=== PATIENT | male | born 1970 | race Caucasian/White ===

== ENCOUNTER 2019-08-07 06:18 | Day surgery (SDC) | payer OTHER, SELFPAY ==
[2019-08-07] VITALS (8 sets, daily range): BP systolic 81–161; BP diastolic 44–99; PULSE 57–74; RESP 12–19; TEMP 36.2–36.7; O2SAT 93–98
[2019-08-07] MEDS: Lactated Ringers 1,000 ML 80 ML IV ×2 (06:55→09:35)
--- NOTE | 2019-08-07 07:41 | W.PM.DSUDISC ---
Discharge Plan Disposition Patient Disposition: [facility] Condition: Good Discharge Details Reason For Visit: NASAL SEPTUM DEVIATION Attending Provider: Dimitri Santana Home Meds and New Rx's Prescriptions: No Action buprenorphine-naloxone [Suboxone] 8-2 mg Film 1 film BUCCAL PRN PRNRF: 0 Discharge Instructions Additional Instructions: see sheet Equipment/Supplies: Brace Remove Dressings/Wound Care:: 24 hours Shower/Bathe:: 24 hours Diet:: As Tolerated DS: Diagnosis Discharge Diagnosis (1) Nasal septal deviation: Status: Acute (2) Nasal obstruction: Status: Acute (3) Nasal valve collapse: (4) Hypertrophy of posterior end of inferior turbinate: Status: Acute
[2019-08-07] MEDS: Oxymetazolone 0.05% SPRAY 15 ML BTL (08:16)
[2019-08-07] MEDS: Silver Nitrate Stick 1 EACH (09:14)
--- NOTE | 2019-08-07 10:32 | ROE_ITS ---
DATE OF PROCEDURE: August 07, 2019 PREOPERATIVE DIAGNOSIS: 1. Chronic nasal obstruction. 2. Obstruction of nasal valve bilaterally. 3. Nasal stenosis. 4. Hypertrophia of both inferior turbinates. POSTOPERATIVE DIAGNOSIS: Same. PROCEDURE: 1. Functional nasoseptal reconstruction, inferior turbinate submucosal resection bilaterally. 2. Repair of internal nasal valve collapse with homograft bilaterally. SURGEON: Dimitri Santana D.O. ANESTHESIA: General. ESTIMATED BLOOD LOSS: 5 cc's TOTAL LOCAL USED: 13 cc's of 1% Lidocaine with 1:100,000 epinephrine COMPLICATIONS: None. CONDITION: The patient tolerated the procedure well. INDICATIONS FOR PROCEDURE: We had an in-depth in office discussion as well as same-day preoperative discussion indicating that the patient is not going to be having a functional rhinoplasty. He has co ncerns about a left nasal bone injury he reports in the kitchen at the [facility] where he struck a metal rounded knob. We went through this numerous times, both in the office and the day of surgery, offer ing referral to [facility] if he so chooses to have the outside and inside of his nose fixed. However I have only discussed with him repair surgically of the internal function al aspect for breathing. We reviewed this in detail again the morning of the surgery with guards pre sent, as well as nursing, his options were reviewed. He wishes to proceed. Again he understands adama t the outside appearance of his nose will not be altered with this functional surgery. Consent was p laced in the Chart. PROCEDURE: The patient was brought back to the operating suite with security guards present, placed supine on the operating table and intubated in a normal fashion. The table was rotated 90 degrees. A time-out was taken to confirm proper patient and procedure. His nasal area was prepped with Betadi ne. Afrin-soaked pledgets were placed. 13 cc's of 1% Lidocaine with 1:100,000 epinephrine was injec deloris into the submucosal surface bilaterally, as well as the lateral nasal wall and inferior turbinate s. The patient was prepped and draped in normal fashion. A #15 blade scalpel was used to perform a Bright's type incision of the left submucosa. A [place] marcos vator was used to elevate the soft tissue of the septum on the left side. A submucosal flap was gene rated with a crossover incision through septal cartilage was performed with septal knife. A similar submucosal subperichondral flap on the right side was created. The obstructive cartilage was removed . There was a large maxillary crest spur to the left; this required osteotomies with both a 2 and 3 mm osteotome. This obstructive tissue was adhered to the mucosa. I did my best to relieve this adhe rence while maintaining as much mucosal integrity as possible. We performed a posterior septal defle ction resection as well. The cartilage was bisected. The convexity portions were placed lateral in an incised bluntly-generated pocket toward the piriform aperture, which was going to receive the Pedro en graft. These were secured, placed and the suture areas that were made with a #15 blade scalpel we re closed with a #4-0 chromic gut suture. The inferior turbinates were incised anteriorly. A 2.0 mm inferior turbinate submucosal blade was used to remove the obstructive soft tissue and bone, followe d by outfracture with Patel elevator. These stab incisions again were closed with #4-0 chromic gut s uture. #4-0 plain gut was used to reapproximate the mucosa meticulously. There was no [id number] hrough violation. There was some rents of the mucosa on the left side. This was repaired as best t o my ability. The septum was completely midline. The inferior turbinates were reduced and the Batte n grafts were placed to prevent future valve collapse. The [place] splints were placed with Bactroban and sutured to the columella with #2-0 silk suture. The patient was stable to PACU and the security [facility] guards were at bedside upon my leaving the hospital.
== END 2019-08-07 11:10 | disposition home or self-care (01) ==
PROVIDERS: Visit Provider Otolaryngology Otolaryngology/Facial Plastic Surgery
PROC: (CPT 30465; principal; 2019-08-07 07:30)
DX: J34.89 Other specified disorders of nose and nasal sinuses (principal); J34.3 Hypertrophy of nasal turbinates
CPT/HCPCS: 30465; 30520; 30140